=== PATIENT | male | born 1945 | race Hispanic/Latino ===

== ENCOUNTER 2022-11-29 05:44 | Observation (INO) | payer MEDICARE ==
[2022-11-22 11:56] LABS: BASOPHILS # (AUTO) 0.04 K/uL (0.00-0.20); BASOPHILS % (AUTO) 0.7 % (0.0-5.0); EOSINOPHILS # (AUTO) 0.16 K/uL (0.00-0.70); EOSINOPHILS % (AUTO) 2.8 % (0.0-8.0); HEMATOCRIT 41.1 % (42-54); IMMATURE GRANULOCYTE ABSOLUTE 0.03 K/uL (0-1); LYMPHOCYTES # (AUTO) 1.4 K/uL (1.0-4.8); MEAN CORPUSCULAR HEMOGLOBIN 28.8 pg (27.0-33.0); MEAN CORPUSCULAR HGB CONC 33.6 g/dL (32.0-36.0); MEAN CORPUSCULAR VOLUME 85.6 fL (79-99); MONOCYTES # (AUTO) 0.5 K/uL (0.1-1.0); MONOCYTES % (AUTO) 8.5 % (3.0-13.0); NEUTROPHILS # (AUTO) 3.5 K/uL (1.8-7.7); NEUTROPHILS % (AUTO) 62.5 % (40.0-77.0); PLATELET COUNT (AUTO) 145 K/uL (130-400); RED CELL DISTRIBUTION WIDTH 15.4 % (11.0-15.5); WHITE BLOOD COUNT (AUTO) 5.6 K/uL (4.8-10.8)
[2022-11-22 12:05] VITALS: BP 123/71; PULSE 84; RESP 18
[2022-11-22 12:09] LABS: CREATININE 1.5 mg/dL (0.5-1.5); POTASSIUM 4.7 mmol/L (3.5-5.1)
[2022-11-29] VITALS (32 sets, daily range): BP systolic 112–161; BP diastolic 58–95; PULSE 90–109; RESP 12–22; O2SAT 98
[~2022-11-29] VITALS: Ht 167.6 cm; Wt 98.2 kg
[~2022-11-29 05:44] MED LIST: ALBUTEROL 0.083% IH; ASPI-1197 PO; AZEL137S11 NS; BISA-151 PO; CETI10TA57 PO; DONE5TAB33 PO; DULO60CA64 PO; FLUT16H NASAL; LEVO50CA4 PO; LEVO5TAB29 PO; LOSA25TA2 PO; PLEC3TAB2 PO; SOLI5TAB6 PO; TAMS-1 PO
[2022-11-29] MEDS ORDERED: LACTATED RINGERS 1000ML 1,000 ML IV ONE (06:13)
[2022-11-29 06:23] LABS: ABG BASE EXCESS -1.9 mmol/L (-2.0-3.0); ABG HCO3 22.5 mmol/L (21.0-28.0); ABG OXYGEN SATURATION 94.8 % (95.0-99.0); ABG PCO2 37 mmHg (35-48); ABG PH 7.398 (7.35-7.450); PO2, ARTERIAL BG 73.2 mmHg (83.0-108.0); VENT MODE, BG RA (ROOM AIR)
[2022-11-29] MEDS: CEFAZOLIN SODIUM 2 GM VIAL ONE ×2 (06:36→09:34)
[2022-11-29] MEDS: LIDOCAINE 2%-EPI PF 30 ML+BUPIVACAINE/PF 0.25% 30ML /60ML SYR IJ SCH ×4 (07:00→09:41)
[2022-11-29] MEDS ORDERED: SUCCINYLCHOLINE CHLORIDE 20 MG/ML 10 ML VIAL ONE (08:05)
[2022-11-29] MEDS ORDERED: LIDOCAINE PF 100MG/5ML (2%) SYRINGE 5ML ONE (08:05)
[2022-11-29] MEDS ORDERED: DEXAMETHASONE SOD PHOSPHATE 10MG/ML 1ML VIAL ONE ×2 (08:06→08:11)
[2022-11-29] MEDS ORDERED: GLYCOPYRROLATE 1 MG/5 ML SYRINGE ONE (08:07)
[2022-11-29] MEDS ORDERED: NEOSTIGMINE 5MG/5ML SYR IV ONE (08:07)
[2022-11-29] MEDS ORDERED: PROPOFOL 10 MG/ML 20ML VIAL IV ONE (08:07)
[2022-11-29] MEDS ORDERED: MIDAZOLAM HCL 1 MG/ML 2ML VIAL ONE (08:07)
[2022-11-29] MEDS ORDERED: ONDANSETRON 4MG INJ ONE ×2 (08:07→08:11)
[2022-11-29] MEDS ORDERED: FENTANYL CITRATE PF 50 MCG/1 ML 2ML VIAL ONE ×3 (08:08→11:07)
[2022-11-29] MEDS ORDERED: ROCURONIUM 10MG/1ML SYR 10 MG/ML ML ONE (08:08)
[2022-11-29] MEDS ORDERED: CEFAZOLIN SODIUM 1 GM VIAL ONE (08:44)
[2022-11-29] MEDS ORDERED: THROMBIN-JMI 20000 UNIT KIT TP ONE (08:45)
[2022-11-29] MEDS ORDERED: MORPHINE PF 100MG/10ML AMP IV ONE (08:45)
[2022-11-29] MEDS ORDERED: PROPOFOL 1000 MG/100 ML 100 ML IV ONE (08:58)
[2022-11-29] MEDS ORDERED: PHENYLEPHRINE HCL 10 MG/ML 1ML VIAL IV ONE (09:57)
[2022-11-29] MEDS ORDERED: ARTIFICIAL TEARS 3.5 GM OINTMENT ONE (09:57)
[2022-11-29] MEDS ORDERED: EPHEDRINE SULFATE 50 MG/ML AMPULE ONE (10:02)
[2022-11-29] MEDS ORDERED: 0.9%NACL 10ML VIAL IVP PRN (12:30)
[2022-11-29] MEDS ORDERED: CEFAZOLIN SODIUM 1 GM VIAL IVPB SCH (12:30)
[2022-11-29] MEDS ORDERED: PROMETHAZINE HCL 25 MG/ML 1ML AMPULE IM PRN (12:30)
[2022-11-29] MEDS ORDERED: LACTATED RINGERS 1000ML 1,000 ML IV SCH (12:30)
[2022-11-29] MEDS ORDERED: IPRATROPIUM/ALBUTEROL SULFATE 3 ML SOLUTION IH STA (13:06)
[2022-11-29] MEDS ORDERED: IPRATROPIUM/ALBUTEROL SULFATE 3 ML SOLUTION IH ONE (13:10)
[2022-11-29] MEDS: DEXAMETHASONE SOD PHOSPHATE 4 MG/ML 1ML VIAL IVP SCH ×3 (13:47→23:41)
[2022-11-29] MEDS: MORPHINE 2 MG SYG IVP PRN ×2 (14:34→16:45)
[2022-11-29] MEDS: CEFAZOLIN SODIUM 1 GM VIAL IVPB SCH ×2 (16:45→23:41)
[2022-11-29] MEDS: HYDROCODONE/ACETAMINOPHEN 5/325 MG TAB PO PRN (18:10)
[2022-11-29] MEDS: Azelastine HCl 137 MCG NASAL SCH (21:00)
[2022-11-29] MEDS ORDERED: BISACODYL 5 MG TABLET.DR PO SCH (21:00)
[2022-11-29] MEDS ORDERED: DONEPEZIL HCL 5 MG TAB PO SCH (21:00)
[2022-11-29] MEDS: FLUTICASONE PROPIONATE 50MCG/SPRAY 16 GM BOTTLE NS SCH (21:00)
[2022-11-29] MEDS ORDERED: NON-FORMULARY MEDICATION 1 EACH (Levocetirizine Dihydrochloride (Xyzal) 5 MG) PO SCH (21:00)
[2022-11-29] MEDS: OXYBUTYNIN CHLORIDE 5 MG TABLET PO SCH (21:03)
[2022-11-30] MEDS ORDERED: PREG150C46 PO (02:42)
[2022-11-30 03:44] VITALS: BP 109/59; PULSE 83; RESP 20
[2022-11-30] MEDS ORDERED: LEVOTHYROXINE 50 MCG TABLET PO SCH (06:30)
[2022-11-30] MEDS: DEXAMETHASONE SOD PHOSPHATE 4 MG/ML 1ML VIAL IVP SCH ×2 (06:47→12:24)
[2022-11-30 08:00] VITALS: BP 138/72; PULSE 102; RESP 18; O2SAT 93
[2022-11-30] MEDS ORDERED: PREGABALIN 75 MG CAPSULE PO SCH (09:00)
[2022-11-30] MEDS ORDERED: DULOXETINE HCL 30 MG CAP PO SCH (09:00)
[2022-11-30] MEDS ORDERED: TAMSULOSIN HCL 0.4 MG CAP.ER.24H PO SCH (09:00)
[2022-11-30] MEDS ORDERED: NON-FORMULARY MEDICATION 1 EACH (Cetirizine HCl 10 MG) PO SCH (09:00)
[2022-11-30] MEDS ORDERED: ASPIRIN 81MG CHEW TAB PO SCH (09:00)
[2022-11-30] MEDS ORDERED: CETIRIZINE HCL 5 MG TABLET PO SCH (09:00)
[2022-11-30] MEDS ORDERED: NON-FORMULARY MEDICATION 1 EACH (Duloxetine HCl 60 MG) PO SCH (09:00)
[2022-11-30] MEDS: Azelastine HCl 137 MCG NASAL SCH (09:00)
[2022-11-30] MEDS ORDERED: NON-FORMULARY MEDICATION 1 EACH (Levothyroxine Sodium (Levothyroxine) 50 MCG) PO SCH (09:00)
[2022-11-30] MEDS ORDERED: LOSARTAN 25 MG TABLET PO SCH (09:00)
[2022-11-30] MEDS ORDERED: SOLIFENACIN SUCCINATE 5 MG PO SCH (09:00)
[2022-11-30] MEDS: OXYBUTYNIN CHLORIDE 5 MG TABLET PO SCH (09:12)
[2022-11-30] MEDS: FLUTICASONE PROPIONATE 50MCG/SPRAY 16 GM BOTTLE NS SCH (09:16)
[2022-11-30] MEDS: HYDROCODONE/ACETAMINOPHEN 5/325 MG TAB PO PRN ×2 (09:19→14:51)
[2022-11-30 12:00] VITALS: BP 124/70; PULSE 83; RESP 18
== END 2022-11-30 17:20 ==
LOC: DAH 05:44 → DAHIP 05:45 → 4BH 13:55
PROVIDERS: ADMIT Neurological Surgery; ATTEND Neurological Surgery
DX: M48.061 Spinal stenosis, lumbar region without neurogenic claudication (principal); I10 Essential (primary) hypertension; J40 Bronchitis, not specified as acute or chronic; E03.9 Hypothyroidism, unspecified; N40.0 Benign prostatic hyperplasia without lower urinary tract symptoms; G47.30 Sleep apnea, unspecified; H91.90 Unspecified hearing loss, unspecified ear; Z79.82 Long term (current) use of aspirin; Z79.899 Other long term (current) drug therapy
CPT/HCPCS: 80048; 85025; 36415; 71045; 96376 ×2; 96365; 96366; 96375; 36600; 63048; 63047; 82803; 72020; 94640; 97161; 97039; 97116; A6260; J1100 ×7; G0378 ×26; G0379; A4600; A4510; A4663; J7120 ×2; A4344; J3010 ×3; J0690 ×4; J3490 ×4; J2710; J0330; J2270 ×2; J2001; J2250; J2704 ×2; J2274; J2405 ×2; J2371; A6219; A4649; A4215; A4223; A4222; A4221